=== PATIENT | male | born 1955 | race Caucasian/White ===

== ENCOUNTER 2017-03-06 18:59 | Emergency (ER) | payer OTHER ==
[2017-03-06] MEDS ORDERED: TRAMADOL HCL50 M1 PO (19:57)
--- NOTE | 2017-03-06 19:57 | ED NECK/BACK PAIN COMPLAINT ---
History of Present Illness General Chief Complaint: Male Genitourinary Problems Stated Complaint: ?KIDNEY STONES Source: patient Exam Limitations: no limitations Allergies Coded Allergies: NO KNOWN ALLERGIES (09/02/11) Triage Note: PER PT X 2 DAYS FELT LIKE KINK IN BACK BUT PAIN GETTING WORSE, STARTS L SIDE BACK INTO FRONT. NO URINE CO Triage Nurses Notes Reviewed? yes HPI: This patient is a 61-year-old male who presented to the emergency department today for evaluation of the left lower back pain. The patient reported the pain has been worsening 2 days. The pain except a 9 out of 10, is sharp and throbbing. It is nonradiating. He reported that it is worse when the area is touched or with certain movements. The patient reported that he did play golf a couple days ago and that he may have strained his back. His primary care physician called him in Flexeril today to take. The patient denied any abdominal pain, nausea, vomiting, fevers, chills, chest pain, difficulty breathing, urinary burning, urgency, frequency, or blood in the urine. (CLAYTON VALENCIA PA-C) Vital Signs & Intake/Output Vital Signs & Intake/Output Vital Signs Date Time Temp Pulse Resp B/P Pulse O2 O2 Flow FiO2 Ox Delivery Rate 03/06 2034 98.0 68 18 155/88 98 Room Air Room Air 03/06 191 97.8 67 22 171/91 97 Room Air ED Intake and Output 03/07 0000 03/06 1200 Intake Total Output Total Balance Patient 250 lb Weight Reconcile Medications Tramadol HCl 50 MG TABLET 1 TAB PO BIDP PRN pain (FRANCESCA DEL VALLE,MIKAYLA Potts) Past History Travel History Traveled to [place] past 21 day No Medical History Any Pertinent Medical History? see below for history Neurological: NONE EENT: NONE Cardiovascular: CHOL Respiratory: NONE Gastrointestinal: NONE Hepatic: NONE Renal: NONE Musculoskeletal: NONE Psychiatric: NONE Endocrine: NONE Surgical History Surgical History: non-contributory Psychosocial History Who do you live with Family Services at Home None What is your primary language Slovak Tobacco Use: Current Daily Use Daily Tobacco Use Amount/Type: => 5 Cigarettes daily Family History Hx Contributory? No (CLAYTON VALENCIA PA-C) Review of Systems Review of Systems Constitutional: Reports: no symptoms. Eyes: Reports: no symptoms. Ears, Nose, Throat, Mouth: Reports: no symptoms. Respiratory: Reports: no symptoms. Cardiovascular: Reports: no symptoms. Gastrointestinal/Abdominal: Reports: no symptoms. Musculoskeletal: Reports: see HPI. Skin: Reports: no symptoms. Neurological/Psychological: Reports: no symptoms. All Other Systems: Reviewed and Negative (CLAYTON VALENCIA PA-C) Physical Exam Physical Exam Neck: normal inspection, supple, full range of motion, normal alignment, no midline tenderness Comments: Well-developed well-nourished person in no acute distress HEENT: Normal EENT exam, head normocephalic/atraumatic, moist mucous membranes Pupils equally round and reactive to light. Back: Antalgic gait. No midline tenderness. Lumbar paraspinal musculature tenderness with muscular spasm noted Respiratory: Chest nontender. No respiratory distress. Speaking in full sentences Abdomen: Soft, nontender and nondistended Extremity: Normal and equal pulses. Neuro: Alert oriented x3, cranial nerves II through XII grossly intact. Skin: No appreciable rash on exposed skin, skin is warm and dry. Psych: Mood and affect is normal (CLAYTON VALENCIA PA-C) Progress Differential Diagnosis: cauda equina syn, herniated disc, myofascial strain, pyelo/UTI, sciatica, spinal cord inj, T/L spine injury, ureterolithiasis (CLAYTON VALENCIA PA-C) Plan of Care: Orders Procedure Date/time Status URINALYSIS 03/06 1917 Complete Laboratory Tests 03/06/171921: Urine Color YEL, Urine Clarity CLEAR, Urine pH 6.0, Ur Specific Wolcott 1.020, Urine Protein NEG, Urine Ketones NEG, Urine Nitrite NEG, Urine Bilirubin NEG, Urine Urobilinogen 0.2, Ur Leukocyte Esterase TRACE H, Ur Microscopic SEDIMENT EXAMINED, Urine RBC RARE, Urine WBC RARE, Ur Epithelial Cells RARE, Urine Hemoglobin NEG, Urine Glucose NEG Departure Departure Disposition: HOME OR SELF CARE Condition: Stable Clinical Impression Primary Impression: Muscle strain Referrals: JF DEL VALLE,MENA Richter (PCP/Family) Additional Instructions: Please take previously prescribed Flexeril as directed for muscular spasms. Take medication for pain as prescribed. Follow-up with your primary care physician. Return for any worsening symptoms or concerns. Please avoid any heavy lifting or strenuous activity over the next several days. Apply ice or heat the affected area as needed. Departure Forms: Customer Survey General Discharge Information Prescriptions: Current Visit Scripts Tramadol HCl 1 TAB PO BIDP PRN pain #10 TAB (ERIK KASPER,CLAYTON) PA/EXTRACTOR LOADER AND UNLOADER Co-Sign Statement Statement: ED Attending supervision documentation- [] I saw and evaluated the patient. I have also reviewed all the pertinent lab results and diagnostic results. I agree with the findings and the plan of care as documented in the PA's/EXTRACTOR LOADER AND UNLOADER's documentation. [x] I have reviewed the ED Record and agree with the PA's/EXTRACTOR LOADER AND UNLOADER's documentation. [] Additions or exceptions (if any) to the PAs/EXTRACTOR LOADER AND UNLOADER's note and plan are summarized below: [] (FRANCESCA DEL VALLE,MIKAYLA Potts)
[2017-03-06 20:34] VITALS: BP 155/88
== END 2017-03-06 20:35 ==
LOC: ERH 18:59
DX: S39.012A Strain of muscle, fascia and tendon of lower back, initial encounter (principal); X58.XXXA Exposure to other specified factors, initial encounter
CPT/HCPCS: 81001; 96372; J1885

== ENCOUNTER 2018-02-14 07:00 | Inpatient (IN) | payer OTHER ==
[~2018-02-14] VITALS: Ht 190.5 cm; Wt 106.3 kg
[~2018-02-14 07:00] MED LIST: ASPIRIN EC81 M1 PO; IRON325 M3 PO; PERCOCET 5-3251 EACH PO; TRAMADOL HCL50 M1 PO
--- NOTE | 2018-02-24 09:24 | Surgical Discharge Summary ---
Visit Information Visit Dates Admission Date: 02/24/18 Discharge Date: 02/26/18 History of Present Illness Chief Complaint: left hip pain related to osteoarthritis Surgical History Pertinent Surgical History: hip replacement Psychosocial History Who Do You Live With? Family Services at Home: None What is Your Primary Language? Chinese Review of Systems: See H&P Hospital Course Course Attending Physician: Ramiro DEL VALLE,Abe Potts Primary Care Physician: Dave Carroll MD Hospital Course: Patient was admitted to the hospital for an elective left total hip arthroplasty. Procedure was tolerated well and patient was transferred to a general surgical floor. Diet was advanced and tolerated. Physical therapy performed evaluation and treatment. At time of hospital discharge, vital signs were stable, neurovascular status was intact, and pain was controlled with the use of oral pain medications. Complications: None Allergies: Coded Allergies: No Known Allergies (02/12/18) Significant Procedures: 02/24/2018 left total hip arthroplasty, Dr. Rubio Disposition Summary Disposition Principal Diagnosis: Primary osteoarthritis left hip Additional Diagnosis: Same, status post left total hip arthroplasty Discharge Disposition: home health services Discharge Instructions General Discharge Information Code Status: Full Code Patient's Diet: Resume regular healthy diet Patient's Activity: Weight-bear as tolerated, use assistive devices as needed Follow-Up Instructions/Appts: f/u in 2 weeks from date of surgery for staple removal, 6 weeks to see Please call office to schedule/confirm this appointment. Medications at Discharge Discharge Medications: Stop taking the following medications: Oxycodone HCl/Acetaminophen (Percocet 5-325 MG Tablet) 5 MG-325 MG TABLET ORAL 4 TIMES A DAY as needed for PAIN Aspirin (Ecotrin*) 81 MG TABLET.DR ST[place]ON DAILY Continue taking these medications: Ferrous Sulfate (IRON) 325 MG (65 MG IRON) TABLET 1 Tablet ORAL DAILY Comments: NOT GIVEN IN HOSTPITAL Start taking the following new medications: Apixaban (Eliquis) 2.5 MG TABLET 1 Tablet ORAL TWICE DAILY Qty = 84 No Refills Comments: Last Taken: 02/26/18 Time: 9:00 AM Oxycodone HCl/Acetaminophen (Percocet 5-325 MG Tablet) 5 MG-325 MG TABLET 1-2 Tablet ORAL EVERY 4-6 HOURS as needed for PAIN Qty = 36 No Refills Comments: Last Taken: 02/26/18 Time: 9:00 AM Copies To: Glen DEL VALLE,Dave Richter
--- NOTE | 2018-02-24 09:26 | Patient Discharge Instructions ---
Discharge Instructions General Discharge Information You were seen/treated for: Primary osteoarthritis left hip You had these procedures: Left total hip arthroplasty Watch for these problems: Increasing pain despite the use of pain medication Increasing redness, warmth or swelling Drainage of any type from incision Inability to bear weight on operative leg Persistent nausea and vomiting Fever greater than 101.5 degrees Other wound care: Please keep wound clean and dry. No ointments or lotions of any type on or near incision. Your dressing will be changed by your nurse on the second day after your surgery. Daily dry dressing changes are recommended each day thereafter. You may shower 48hr after surgery. Do not soak your wound- no tub baths or swimming. Special Instructions: Eliquis (apixaban): You are taking this medication to help prevent blood clot formation during the postoperative period. Take as directed. Diet Continue normal diet: Yes Recommended Diet: Regular Activity Activity Limited to: Weight bear as tolerated Additional ACTIVITY Info: Use assistive devices as needed Acute Coronary Syndrome Inclusion Criteria At DC or during hospital stay patient has or had the following: ACS DIAGNOSIS No Discharge Core Measures Meds if any: Prescribed or Continued at Discharge Meds if any: NOT Prescribed or Continued at Discharge Congestive Heart Failure Inclusion Criteria At DC or during hospital stay patient has or had the following: CHF DIAGNOSIS No Discharge Core Measures Meds if any: Prescribed or Continued at Discharge Meds if any: NOT Prescribed or Continued at Discharge Cerebrovascular accident Inclusion Criteria At DC or during hospital stay patient has or had the following: CVA/TIA Diagnosis No Discharge Core Measures Meds if any: Prescribed or Continued at Discharge Meds if any: NOT Prescribed or Continued at Discharge Venous thromboembolism Inclusion Criteria VTE Diagnosis No VTE Type NONE VTE Confirmed by (Test) NONE Discharge Core Measures - Per Current guidelines, there needs to be overlap - treatment for the first 5 days of Warfarin therapy. - If discharged on Warfarin prior to 5 days of - overlap therapy, the patient will need to be - assessed for post discharge needs including - *Post discharge parental anticoagulation - *Warfarin and/or parental anticoagulation education - *Follow up date to check INR post discharge At least 5 days overlap therapy as Inpatient No Meds if any: Prescribed or Continued at Discharge Note: Overlap Therapy is Warfarin and Anticoagulant Meds if any: NOT Prescribed or Continued at Discharge
--- NOTE | 2018-02-24 09:28 | Admission Core Measures ---
Acute Coronary Syndrome (CM) ACS Core Measures Acute Coronary Syndrome Diagnosis No Congestive Heart Failure (NEW) CHF Core Measures Congestive Heart Failure Diagnosis No Cerebrovascular Accident (NEW) CVA Core Measures CVA/TIA Diagnosis No Venous Thromboembolism VTE Core Padma (View Protocol) VTE Risk Factors Surgery No Mechanical VTE Prophylaxis d/t N/A MechProphylax Ordered No VTE Pharm Prophylaxis d/t NA PharmProphylax ordered Problem List As ranked by this Provider includes Assessment & Plan 1. Primary osteoarthritis of left hip HOME MEDS Home Med List Aspirin (Ecotrin*) 81 MG TABLET.DR 1 TAB PO DAILY HEART HEALTH (Reported) Ferrous Sulfate (IRON) 325 MG (65 MG IRON) TABLET 1 TAB PO DAILY SUPPLEMENT ( Reported) Oxycodone HCl/Acetaminophen (Percocet 5-325 MG Tablet) 5 MG-325 MG TABLET 1-2 TAB PO 4 TIMES/DAY PRN PAIN (Reported)
--- NOTE | 2018-02-24 10:20 | Operative Report ---
Operative/Inv Procedure Report Surgery Date: 02/24/18 Name of Procedure: Left total hip arthroplasty Pre-Operative Diagnosis: Primary osteoarthritis left hip Post-Operative Diagnosis: Same Estimated Blood Loss: 300 Surgeon/Liquid Hydrogen Plant Operator: Ramiro DEL VALLE,Abe CONTRERAS Anesthesia: block (SPINAL) IV Fluids: See anesthesia record Implants: Adam Accolade 2 total hip femoral stem 127 neck angle size 6 stem, size 56 acetabular shell 36 mm head with a +2.5 neck length Drains: None Specimens: Left femoral head Complications: None Condition: Stable Operative Indication: Patient's a 62-year-old male with severe degenerative changes of the left hip. He failed conservative treatment including exercise and weight loss. He is indicated for left total hip arthroplasty. Skilled set hands was necessary provided by physician high school assistant football coach Demetrius Daugherty weighted with retraction component assembly limb and limb positioning throughout the case. Operative/Procedure Note Note: Once informed consent was obtained and the correct limb was identified the patient was brought to operative room placed on table in the supine position. After administration of spinal anesthesia patient placed in a right lateral decubitus position on the pegboard with an x-ray roll in place and all bony prominences well-padded. A Ríos catheter was placed. The left lower extremity is prepped and draped usual sterile fashion. To begin the procedure standard incision for superior approach to the left hip was made. Sharp dissection carried down through the skin and subcutaneous tissue and fat. The gluteus river fascia was nicked and incised with a #10 blade. The fibers of the gluteus river were bluntly dissected. Retractors were placed deep to the gluteus medius and around the femoral neck. This allowed excellent visualization of the piriformis which was released from its insertion point and tagged for later repair. A superior capsulotomy was performed and the capsule was tagged for repair. The hip was dislocated. The labrum was removed and osteophytes removed from the acetabular cup. Femoral neck cut was made 1 fingerbreadth above the lesser trochanter and the femoral head was passed off as specimen. Inferior and anterior acetabular retractors were placed. Pulse lavage removed from the acetabulum. Osteophytes were removed with a curved osteotome. Reaming was started with a size 47 reamer to medialize to identify the medial wall of the cup. We then sequentially reamed up to a size 55 reamer. A size 56 cup was trialed and found to be an excellent fit. A size 56 acetabular shell was opened and placed into the acetabulum using an excellent press-fit technique. Cup was completely stable. Care was taken to monitor version and abduction angle. The liner was opened and locked into place. At this point Ray-Khushboo was placed in the liner to protect it and the femur was internally rotated. Box osteotome was used to open up the lateral neck and remove any lateral neck and open up the canal. The starting reamer was used. We then broached sequentially starting with a 0 broach and broached up to a size 6 broach. 6 broach had excellent fit with no rotational instability. A trial reduction was done with a 36 mm head and a 0 neck length. The leg was slightly short so into a +2.5 neck. The hip was stable in 90 of flexion with 30 of abduction and 30 of internal rotation. Hip was re-dislocated and the components removed. A size 627 neck angle Accolade 2 femoral component was opened and placed down the canal using press-fit technique. A trial reduction was again done with a +2.5 neck length and found to be stable. The 36 mm head + 2.5 neck length was opened and placed onto the component. Hip was redislocated and again taken through range of motion. At this point the wound was irrigated with pulse lavage. These piriformis and capsule repaired back to the greater trochanter through drill hole. The gluteus river fascia was closed with a running looped #1 Maxon suture. Subcutaneous tissues closed #1 Vicryl and 2-0 Vicryl interrupted sutures and the skin was closed with noreen. A sterile dressing applied and the patient was taken recovery room in stable condition.
--- NOTE | 2018-02-24 10:52 | RADIOLOGY REPORT ---
EXAMINATION: XR HIP, LEFT CLINICAL INFORMATION: Arthroplasty COMPARISON: None TECHNIQUE: Single AP view of the left hip. FINDINGS: There is an arthroplasty replacing the left hip. There is anatomic alignment on this one view with no complications apparent. IMPRESSION: Expected postoperative changes status post arthroplasty
--- NOTE | 2018-02-24 11:06 | Cons- Medical ---
TriciaAshleyashley 02/24/18 1106: General Information and HPI Consulting Request Date of Consult: 02/24/18 Requested By: Ramiro DEL VALLE,Abe Potts Reason for Consult: Co-management Source of Information: patient, old records Exam Limitations: no limitations History of Present Illness: is a 62 yo man with PMHx. of left hip OA, Hx. of right ankle arthrodesis at 2010. Presented ot for elective Left total hip arthroplasty, had the procedure done today. Medical team consulted for co-management. I saw the patient at PACU, he was comfortable with no acute distress, initially his blood pressure was down to 80/50 mmHg which is most likely secondary to spinal anesthesia, which improved after a bolus of normal saline to 107/60 mmgh. Patient was able to answer questions appropriately. He reports that he is healthy with no chronic disease, he is not on any medication at home except for Percocet which was prescribed for left hip pain, he noticed rash in the upper chest and neck region after he started on Percocet. The only complaint during the encounter is that he has pain on the left hip and also he noted right arm numbness, with no motor or sensory deficits . He denies any chest pain, shortness of breath, palpitation, dizziness, fever, chills, and there is no change in his urinary or bowel habits. He was noted to have cloudy urine through the Ríos catheter but he denies any burning, frequency, dysuria. He has a family history of heart attack in his father at age 85-year-old, and his mother has quadraple bypass surgery in her 60s. Patient had a nuclear stress test done [address] Reddy office which was normal. Allergies/Medications Allergies: Coded Allergies: No Known Allergies (02/12/18) Home Med List: Aspirin (Ecotrin*) 81 MG TABLET. 1 TAB PO DAILY HEART HEALTH (Reported) Ferrous Sulfate (IRON) 325 MG (65 MG IRON) TABLET 1 TAB PO DAILY SUPPLEMENT ( Reported) Oxycodone HCl/Acetaminophen (Percocet 5-325 MG Tablet) 5 MG-325 MG TABLET 1-2 TAB PO 4 TIMES/DAY PRN PAIN (Reported) Current Medications: Current Medications Sig/Jens Start time Last Medication Dose Route Stop Time Status Admin Acetaminophen 0 .STK-MED ONE 02/24 0656 DC PO Acetaminophen 650 MG ONCE 02/24 0000 DC PO 02/24 2359 Apixaban 2.5 MG BID 02/25 1000 AC PO Cefazolin Sodium 2,000 MG ONCE 02/24 0000 DC IV 02/24 2359 Celecoxib 400 MG DAILY 02/25 1000 AC PO Celecoxib 400 MG ONCE 02/24 0000 DC PO 02/24 2359 Dexamethasone 0 .STK-MED ONE 02/24 0656 DC .ROUTE Dexamethasone 10 MG ONCE 02/24 0000 DC IV 02/24 2359 Dextrose/Lactated 1,000 ML Q13H 02/24 1215 AC Ringer's IV Docusate Sodium 100 MG DAILY 02/25 1000 AC PO Gabapentin 0 .STK-MED ONE 02/24 0657 DC PO Gabapentin 300 MG ONCE 02/24 0000 DC PO 02/24 2359 Morphine Sulfate 2 MG Q3P PRN 02/24 1215 AC IV Morphine Sulfate 4 MG Q3P PRN 02/24 1215 AC IV Ondansetron HCl 4 MG Q6P PRN 02/24 1215 AC IV Oxycodone HCl 0 .STK-MED ONE 02/24 0656 DC PO Oxycodone HCl 10 MG ONCE 02/24 0000 DC PO 02/24 2359 Oxycodone/ 1 TAB Q4P PRN 02/24 1215 AC Acetaminophen PO Oxycodone/ 2 TAB Q4P PRN 02/24 1215 AC Acetaminophen PO Polyethylene Glycol 17 GM DAILY NEEDED PRN 02/24 1215 AC PO Scopolamine HBr 0 .STK-MED ONE 02/24 0656 DC TOP Scopolamine HBr 1 PAT ONCE 02/24 0000 DC TOP 02/24 2359 Senna/Docusate Sodium 2 TAB AT BEDTIME 02/24 2200 AC PO Vancomycin HCl 1,500 MG ONCE ONE 02/24 1900 AC Sodium Chloride 250 ML IV 02/24 2029 Vancomycin HCl 1,500 MG ONCE ONE 02/24 0630 DC Sodium Chloride 250 ML IV 02/24 0759 Review of Systems Review of Systems Constitutional: Reports: no symptoms. EENTM: Reports: no symptoms. Cardiovascular: Reports: no symptoms. Respiratory: Reports: no symptoms. GI: Reports: no symptoms. Genitourinary: Reports: no symptoms. Musculoskeletal: Reports: joint pain (left hip). Skin: Reports: rash (on the upper chest and neck). Neurological/Psychological: Reports: numbness (on the Rt. arm). Hematologic/Endocrine: Reports: no symptoms. Immunologic/Allergic: Reports: no symptoms. All Other Systems: Reviewed and Negative Past History Travel History Traveled to [place] past 21 day No Medical History Blood Transfusion Hx: No Neurological: NONE EENT: NONE Cardiovascular: NONE Respiratory: NONE Gastrointestinal: NONE Hepatic: NONE Renal: NONE Musculoskeletal: spinal fusion of C3, C4 Psychiatric: NONE Endocrine: NONE Blood Disorders: NONE Surgical History Surgical History: hip replacement, right ankle arthrodesis Psychosocial History Services at Home: None Smoking Status: Former Smoker ETOH Use: he drinks 3-4 wine on Thursday only Illicit Drug Use: marijuana Exam & Diagnostic Data Last 24 Hrs of Vital Signs/I&O Vital Signs Date Time Temp Pulse Resp B/P B/P Pulse O2 O2 Flow FiO2 Mean Ox Delivery Rate 02/24 1238 96.5 56 20 116/62 02/24 1238 96.5 56 20 116/62 96 Room Air Room Air Intake & Output 02/24 1600 02/24 0800 02/24 0000 Intake Total Output Total Balance Patient 234 lb Weight Weight Bed scale Measurement Method Physical Exam General Appearance: well developed/nourished, no apparent distress, alert, awake Head: atraumatic, normal appearance Eyes: Left: normal appearance, PERRL, EOMI. Neck: normal inspection, supple, full range of motion, erythematous rash Respiratory: normal breath sounds, chest non-tender, no respiratory distress Cardiovascular: regular rate/rhythm, normal peripheral pulses Peripheral Pulses: 2+ dorsalis pedis (R), 2+ dorsalis pedis (L) Gastrointestinal: normal bowel sounds, soft, non-tender, no organomegaly Extremities: normal inspection Neurologic/Psych: awake, alert, oriented x 3, normal mood/affect, flavor tank tender II-XII nml as tested, no motor/sensory deficits in the upper extremities Lower extremity is numb 2/2 to spinal anesthesia Cranial Nerves: normal hearing, normal speech, PERRL Last 24 Hrs of Labs/Ruslan: No labs Diagnostic Data Other Results Hip x-ray: Expected postoperative changes status post arthroplasty Assessment/Plan Assessment/Plan is a 62 yo man with PMHx. of left hip OA, Hx. of right ankle arthrodesis at 2010. Presented ot for elective Left total hip arthroplasty, had the procedure done today. Medical team consulted for co-management. Assessment: #Status post Left total hip arthroplasty #? Allergic reaction to Percocet Plan: * Continue monitoring of his blood pressure and bolus if needed * Pain management for left hip, he had allergic reaction to Percocet consider another agent * Follow-up urinalysis and culture * DVT prophylaxis based on orthopedist recommendation Problem List: 1. Primary osteoarthritis of left hip Copies To: Edna Doran MD Consult Acknowledgment - Thank you for your consult request. Edna Doran MD 02/24/18 1307: Assessment/Plan Consult Acknowledgment - Thank you for your consult request. Attending MD Review Statement Attending Statement Attending MD Statement: examined this patient, discuss w/resident/PA/RFID ENGINEER, agreed w/resident/PA/RFID ENGINEER, reviewed EMR data (avail), discussed with nursing, amended to note Attending Assessment/Plan: 62-year-old male with past medical history significant for osteoarthritis, degenerative disc disease who is admitted postoperatively to orthopedic service after he had left total hip arthroplasty for osteoarthritis. Medical consult is obtained for comanagement. Patient was seen in the recovery room. Patient did complain of feeling some right hand numbness. He was still having some difficulty moving his toes. Patient has received spinal anesthesia. He did drop his blood pressure initially but then improved after fluid bolus. Patient denies any chest pain, shortness of breath. He has a rash on his chest which he attributes to taking Percocet. RN told us that patient's urine was looking cloudy. Patient did have some orangeish urine output this morning but denies any pain or burning. Vital Signs Date Time Temp Pulse Resp B/P B/P Pulse O2 O2 Flow FiO2 Mean Ox Delivery Rate 02/24 1238 96.5 56 20 116/62 02/24 1238 96.5 56 20 116/62 96 Room Air Room Air On exam; Aox3, nad. Cv; s1,s2, rrr resp; clear abd; soft, nt, bs+ ext; no edema s/p Left SHU. no labs. Assessment and recommendations: 62-year-old male with past medical history significant for osteoarthritis, degenerative disc disease who is status post left hip total arthroplasty postoperative day #0 today. Medical consult is obtained for comanagement. We'll send urinalysis and urine culture to make sure there is no infection. Patient will need postoperative incentive spirometry and physical therapy. Patient did mention that he developed a rash with Percocet therefore would recommend using alternative analgesics. H&H will be monitored. DVT prophylaxis postoperatively: Will refer to orthopedic. Patient does not take any chronic home meds. Thank you for allowing us to participate in the care of this patient, will follow along with you.
[2018-02-24 12:38] VITALS: BP 116/62
--- NOTE | 2018-02-24 13:53 | PN- Orthopedic ---
Subjective Subjective: pt sleeping in bed, says he just has pain at incision site. no nausea, has no eaten yet. Hansen still in place. has not ambulated yet. says spinal is wearing off. Denies CP/SOB/GANDHI or fevers Objective Vital Signs and I&Os Vital Signs Date Time Temp Pulse Resp B/P B/P Pulse O2 O2 Flow FiO2 Mean Ox Delivery Rate 02/24 1238 96.5 56 20 116/62 02/24 1238 96.5 56 20 116/62 96 Room Air Room Air Intake & Output 02/24 1600 02/24 0800 02/24 0000 02/23 1600 02/23 0800 02/23 0000 Intake Total Output Total Balance Patient 234 lb Weight Weight Bed scale Measurement Method Physical Exam: gen- NAD, very sleepy resp- clear cardiac- RRR ext- left hip soft with clean dry dressing. distal sensory and motor function intact. 2+ PT pulse. no calf tenderness Current Medications: Current Medications Sig/Jens Start time Last Medication Dose Route Stop Time Status Admin Acetaminophen 0 .STK-MED ONE 02/24 0656 DC PO Acetaminophen 650 MG ONCE 02/24 0000 DC PO 02/24 2359 Apixaban 2.5 MG BID 02/25 1000 AC PO Cefazolin Sodium 2,000 MG ONCE 02/24 0000 DC IV 02/24 2359 Celecoxib 400 MG DAILY 02/25 1000 AC PO Celecoxib 400 MG ONCE 02/24 0000 DC PO 02/24 2359 Dexamethasone 0 .STK-MED ONE 02/24 0656 DC .ROUTE Dexamethasone 10 MG ONCE 02/24 0000 DC IV 02/24 2359 Dextrose/Lactated 1,000 ML Q13H 02/24 1215 AC 02/24 Ringer's IV 1228 Docusate Sodium 100 MG DAILY 02/25 1000 AC PO Gabapentin 0 .STK-MED ONE 02/24 0657 DC PO Gabapentin 300 MG ONCE 02/24 0000 DC PO 02/24 2359 Morphine Sulfate 2 MG Q3P PRN 02/24 1215 AC IV Morphine Sulfate 4 MG Q3P PRN 02/24 1215 AC IV Ondansetron HCl 4 MG Q6P PRN 02/24 1215 AC IV Oxycodone HCl 0 .STK-MED ONE 02/24 0656 DC PO Oxycodone HCl 10 MG ONCE 02/24 0000 DC PO 02/24 2359 Oxycodone/ 1 TAB Q4P PRN 02/24 1215 AC Acetaminophen PO Oxycodone/ 2 TAB Q4P PRN 02/24 1215 AC Acetaminophen PO Polyethylene Glycol 17 GM DAILY NEEDED PRN 02/24 1215 AC PO Scopolamine HBr 0 .STK-MED ONE 02/24 0656 DC TOP Scopolamine HBr 1 PAT ONCE 02/24 0000 DC TOP 02/24 2359 Senna/Docusate Sodium 2 TAB AT BEDTIME 02/24 2200 AC PO Vancomycin HCl 1,500 MG ONCE ONE 02/24 1900 AC Sodium Chloride 250 ML IV 02/24 2029 Vancomycin HCl 1,500 MG ONCE ONE 02/24 0630 DC Sodium Chloride 250 ML IV 02/24 0759 Assessment/Plan Assessment/Plan 62yo M SP Left SHU POD0. stable. PT- WBAT, posterior hip precautions dvt ppx-elequis, alps and early ambulation pain management hansen to come out tomorrow reg diet reg home meds follow-up AM labs Core Measures Venous Thromboembolism VTE Risk Factors Surgery No Mechanical VTE Prophylaxis d/t N/A MechProphylax Ordered No VTE Pharm Prophylaxis d/t NA PharmProphylax ordered
[2018-02-24 23:40] VITALS: BP 121/75
[2018-02-25 06:15] VITALS: BP 100/54
--- NOTE | 2018-02-25 07:58 | PN- Medicine Consult ---
See Addendum Assessment/PlanMedical Consult Assessment/Plan Assessment: is a 62 yo man with PMHx. of left hip OA, Hx. of right ankle arthrodesis at 2010. Presented ot for elective Left total hip arthroplasty, had the procedure done today. Medical team consulted for co-management. Assessment: #Status post Left total hip arthroplasty #Acute blood loss anemia #Allergic reaction to Percocet Plan: * Please order Spirometry * H&H is dropping to 10.9/31.4 today, it was 14.6/42.7 which is related to procedure, however he is hemodynamically stable * Please check stool Guiac given that he is started on Eliquis and document the result * Continue to monitor his blood pressure and bolus if needed (It is in the lower side most likely 2/2 to opiod) * There is multiple order of Percocet and Morphine, avoid to administer these 2 medication close to each other as that is going to affect BP. His BP is noted to be on the lower side. * Pain management for left hip, he had allergic reaction to Percocet consider another agent * Bowel regimen to avoid constipation * Patient want to know his iron level, iron indices added to his am lab * Urine culture was sent still pending, however no UA sent. Please send UA * DVT prophylaxis with Eliquis per orthopedic surgery Problem List: 1. Primary osteoarthritis of left hip Subjective Subjective: Patient seen and examined, no events over night, vitals stable, BP on the lower side 100/54mmgh He still complaining of pain on the left hip with improvement from yesterday. No bowel movement, he passes gas. No SOB or chest pain Review of Systems Constitutional: Reports: no symptoms. EENTM: Reports: no symptoms. Cardiovascular: Reports: no symptoms. Respiratory: Reports: no symptoms. Gastrointestinal: Reports: no symptoms. Genitourinary: Reports: no symptoms. Musculoskeletal: Reports: no symptoms. Skin: Reports: no symptoms. Neurological/Psychological: Reports: no symptoms. Hematologic/Endocrine: Reports: no symptoms. Immunologic/Allergic: Reports: no symptoms. Objective Last 24 Hrs of Vital Signs/I&O Vital Signs Date Time Temp Pulse Resp B/P B/P Pulse O2 O2 Flow FiO2 Mean Ox Delivery Rate 02/25 0615 97.6 62 20 100/54 95 02/24 2340 98.2 63 20 121/75 97 Room Air 02/24 1238 96.5 56 20 116/62 02/24 1238 96.5 56 20 62 96 Room Air Room Air Intake & Output 02/25 0800 02/25 0000 02/24 1600 Intake Total 625 Output Total 1900 850 Balance -1900 -850 625 Intake, IV 225 Intake, Oral 400 Output, Urine 1900 850 Patient 234 lb Weight Weight Bed scale Measurement Method Physical Exam General Appearance: well developed/nourished, no apparent distress, alert, awake , comfortable Head: atraumatic, normal appearance Ears, Nose, Throat: normal pharynx Neck: normal inspection, supple Cardiovascular: regular rate/rhythm, normal peripheral pulses Respiratory: normal breath sounds, chest non-tender, no respiratory distress Abdomen: normal bowel sounds, soft, non-tender Extremities: no edema Neurologic/Psychiatric: awake, alert, oriented x 3 Current Medications: Current Medications Sig/Jens Start time Last Medication Dose Route Stop Time Status Admin Acetaminophen 650 MG ONCE 02/24 0000 DC PO 02/24 2359 Apixaban 2.5 MG BID 02/25 1000 AC PO Cefazolin Sodium 2,000 MG ONCE 02/24 0000 DC IV 02/24 2359 Celecoxib 400 MG DAILY 02/25 1000 AC PO Celecoxib 400 MG ONCE 02/24 0000 DC PO 02/24 2359 Dexamethasone 10 MG ONCE 02/24 0000 DC IV 02/24 2359 Dextrose/Lactated 1,000 ML Q13H 02/24 1215 AC 02/25 Ringer's IV 0111 Docusate Sodium 100 MG DAILY 02/25 1000 AC PO Gabapentin 300 MG ONCE 02/24 0000 DC PO 02/24 2359 Morphine Sulfate 2 MG Q3P PRN 02/24 1215 AC IV Morphine Sulfate 4 MG Q3P PRN 02/24 1215 AC 02/25 IV 0435 Ondansetron HCl 4 MG Q6P PRN 02/24 1215 AC IV Oxycodone HCl 10 MG ONCE 02/24 0000 DC PO 02/24 2359 Oxycodone/ 1 TAB Q4P PRN 02/24 1215 AC 02/24 Acetaminophen PO 1628 Oxycodone/ 2 TAB Q4P PRN 02/24 1215 AC 02/24 Acetaminophen PO 2158 Polyethylene Glycol 17 GM DAILY NEEDED PRN 02/24 1215 AC PO Scopolamine HBr 1 PAT ONCE 02/24 0000 DC TOP 02/24 2359 Senna/Docusate Sodium 2 TAB AT BEDTIME 02/24 2200 AC 02/24 PO 2158 Vancomycin HCl 1,500 MG ONCE ONE 02/24 1900 DC 02/24 Sodium Chloride 250 ML IV 02/24 2029 1953 Vancomycin HCl 1,500 MG ONCE ONE 02/24 0630 DC Sodium Chloride 250 ML IV 02/24 0759 Results Last 24 Hrs Lab/Ruslan Results: Laboratory Tests 02/25/18 0652: Sodium Pending, Potassium Pending, Chloride Pending, Carbon Dioxide Pending, Anion Gap Pending, BUN Pending, Creatinine Pending, BUN/Creatinine Ratio Pending , CBC w Diff Pending, WBC Pending, RBC Pending, Hgb Pending, Hct Pending, MCV Pending, MCH Pending, MCHC Pending, RDW Pending, Plt Count Pending, MPV Pending Microbiology 02/24 0800 URINE ROUT: Urine Culture - RECD
[2018-02-25 08:28] LABS: ABSOLUTE BASOPHIL COUNT 0 /CUMM (0.0-0.2); ABSOLUTE EOSINOPHIL COUNT 0 /CUMM (0.0-0.7); ABSOLUTE GRANULOCYTE CT 6.8 /CUMM (1.4-6.5); ABSOLUTE LYMPH COUNT 0.8 /CUMM (1.2-3.4); ABSOLUTE MONOCYTE COUNT 0.6 /CUMM (0.10-0.60); BASOPHIL % 0.1 % (0.0-2.0); EOSINOPHIL % 0.4 % (0-5); GRANULOCYTE % 81.8 % (42.2-75.2); HEMATOCRIT 31.4 % (42-52); MEAN CORPUSCULAR HGB 31.4 PG (27.0-31.0); MEAN CORPUSCULAR HGB CONC 34.6 G/DL (33.0-37.0); MEAN CORPUSCULAR VOLUME 90.8 FL (80.0-94.0); MEAN PLATELET VOLUME 10.6 FL (7.4-10.4); PLATELET COUNT 188 /CUMM (130-400); RBC DISTRIBUTION WIDTH 14.1 % (11.5-14.5); RED BLOOD CELL CT 3.46 /CUMM (4.70-6.10); WHITE BLOOD CELL COUNT 8.4 /CUMM (4.8-10.8)
--- NOTE | 2018-02-25 08:41 | PN- Orthopedic ---
See Addendum Subjective Subjective: Patient doing well. Has been up and ambulating with a walker with PT. Has stairs in his home and has not tried those yet. He can reside on the first level if need be. Feels comfortable with the initial plan to go home with a walker and services. He is tolerating a regular diet and is ready for the hansen to come out. Current analgesia working well. No other issues or complaints. Objective Vital Signs and I&Os Vital Signs Date Time Temp Pulse Resp B/P B/P Pulse O2 O2 Flow FiO2 Mean Ox Delivery Rate 02/25 0615 97.6 62 20 100/54 95 02/24 2340 98.2 63 20 121/75 97 Room Air 02/24 1238 96.5 56 20 11662 02/24 1238 96.5 56 20 96 Room Air Room Air Intake & Output 02/25 1600 02/25 0800 02/25 0000 02/24 1600 02/24 0800 02/24 0000 Intake Total 780 625 Output Total 1900 850 Balance -1120 -850 625 Intake, IV 300 225 Intake, Oral 480 400 Output, Urine 1900 850 Patient 234 lb Weight Weight Bed scale Measurement Method Physical Exam: General: A, A, NAD Extremities: Left hip dressing is clean, dry, and intact without any strikethrough, no surrounding edema, erythema or ecchymosis, appropriately tender to palpation, light touch sensation intact and equal bilaterally, 5/5 dorsiflexion and plantarflexion Current Medications: Current Medications Sig/Jens Start time Last Medication Dose Route Stop Time Status Admin Acetaminophen 650 MG ONCE 02/24 0000 DC PO 02/24 2359 Apixaban 2.5 MG BID 02/25 1000 AC PO Cefazolin Sodium 2,000 MG ONCE 02/24 0000 DC IV 02/24 235 Celecoxib 400 MG DAILY 02/25 1000 AC PO Celecoxib 400 MG ONCE 02/24 0000 DC PO 02/24 235 Dexamethasone 10 MG ONCE 02/24 0000 DC IV 02/24 235 Dextrose/Lactated 1,000 ML Q13H 02/24 1215 DC 02/25 Ringer's IV 0111 Docusate Sodium 100 MG DAILY 02/25 1000 AC PO Gabapentin 300 MG ONCE 02/24 0000 DC PO 02/24 235 Morphine Sulfate 2 MG Q3P PRN 02/24 1215 AC IV Morphine Sulfate 4 MG Q3P PRN 02/24 1215 AC 02/25 IV 0759 Ondansetron HCl 4 MG Q6P PRN 02/24 1215 AC IV Oxycodone HCl 10 MG ONCE 02/24 0000 DC PO 02/24 2359 Oxycodone/ 1 TAB Q4P PRN 02/24 1215 AC 02/24 Acetaminophen PO 1628 Oxycodone/ 2 TAB Q4P PRN 02/24 1215 AC 02/24 Acetaminophen PO 2158 Polyethylene Glycol 17 GM DAILY NEEDED PRN 02/24 1215 AC PO Scopolamine HBr 1 PAT ONCE 02/24 0000 DC TOP 02/24 2359 Senna/Docusate Sodium 2 TAB AT BEDTIME 02/24 2200 AC 02/24 PO 2158 Vancomycin HCl 1,500 MG ONCE ONE 02/24 1900 DC 02/24 Sodium Chloride 250 ML IV 02/24 Results Last 48 Hours of Labs: Laboratory Tests 02/25 0652 Chemistry Sodium Pending Potassium Pending Chloride Pending Carbon Dioxide Pending Anion Gap Pending BUN Pending Creatinine Pending BUN/Creatinine Ratio Pending Hematology CBC w Diff Pending WBC Pending RBC Pending Hgb Pending Hct Pending MCV Pending MCH Pending MCHC Pending RDW Pending Plt Count Pending MPV Pending Recent Imaging Studies: Right Hip X-ray 02/24/18: Arthroplasty replacing the left hip. There is anatomic alignment on this one view with no complications apparent. Assessment/Plan Assessment/Plan This is a 62 yo male with a past medical history significant for iron deficiency anemia, alcohol use and osteoarthritis who is POD#1 s/p Left Total Hip Arthroplasty. Plan for today is as follows: 1. Continue Regular Diet, HL IVF 2. D/C Hansen, DTV in 6-8 hours, if no void bladder scan and call team 3. OOB w/ assist and RW, continue PT, needs to try stairs with PT prior to discharge, if able to do stairs anticipate home with services tomorrow or Thursday 4. Continue current analgesia and bowel regimen 5. Dressing change by surgery tomorrow 6. Continue Eliquis 2.5mg BID for anticoagulation 7. Continue CIWA 8. Appreciate medicine input, discussed changing Percocet with the patient however, he said its the only thing that works for him and would prefer to stay on it. BP stable will continue to monitor. 9. Will follow up labs Problem List: 1. Primary osteoarthritis of left hip 2. Status post left hip replacement Core Measures Venous Thromboembolism VTE Risk Factors Surgery No Mechanical VTE Prophylaxis d/t N/A MechProphylax Ordered No VTE Pharm Prophylaxis d/t NA PharmProphylax ordered
[2018-02-25 10:00] VITALS: BP 100/58
[2018-02-25 16:00] VITALS: BP 104/56
[2018-02-25 22:29] VITALS: BP 102/50
[2018-02-26 06:02] VITALS: BP 100/64
--- NOTE | 2018-02-26 07:41 | PN- Medicine Consult ---
See Addendum Assessment/PlanMedical Consult Assessment/Plan Assessment: is a 62 yo man with PMHx. of left hip OA, Hx. of right ankle arthrodesis at 2010. Presented ot for elective Left total hip arthroplasty, had the procedure done today. Medical team consulted for co-management. Assessment: #Status post Left total hip arthroplasty Plan: * Check his CBC today, to check H&H prior to discharge * Pain management for left hip per surgical team * Bowel regimen to avoid constipation * DVT prophylaxis with Eliquis per orthopedic surgery Thanks for the consult. Medical team will sign off, call for any questions Problem List: 1. Status post left hip replacement Subjective Subjective: Patient seen and examined, eating his breakfast, feels sore on the left hip. His pain is well controlled with Percocet. He passes gas with no bowel movement yet. He is going home today per surgical team with home health service. Vitals stable, no events over night Objective Last 24 Hrs of Vital Signs/I&O Vital Signs Date Time Temp Pulse Resp B/P B/P Pulse O2 O2 Flow FiO2 Mean Ox Delivery Rate 02/26 0602 97.8 66 20 100/64 94 Room Air 02/25 2229 98.6 53 16 102/50 94 Room Air 02/25 1600 98.9 64 18 104/56 96 Room Air Room Air 02/25 1024 Room Air Room Air 02/25 1000 99.3 62 20 100/58 96 Room Air Intake & Output 02/26 1600 02/26 0800 02/26 0000 Intake Total 240 1280 Output Total 1400 850 Balance -1160 430 Intake, Oral 240 1280 Output, Urine 1400 850 Physical Exam General Appearance: well developed/nourished, no apparent distress, alert, awake , comfortable Head: atraumatic, normal appearance Cardiovascular: regular rate/rhythm Respiratory: normal breath sounds Abdomen: normal bowel sounds, soft, non-tender Extremities: no edema Neurologic/Psychiatric: no motor/sensory deficits, awake, alert, oriented x 3 Skin: intact, normal color, warm/dry Current Medications: Current Medications Sig/Jens Start time Last Medication Dose Route Stop Time Status Admin Apixaban 2.5 MG BID 02/25 1000 AC 02/25 PO 2037 Celecoxib 400 MG DAILY 02/25 1000 AC 02/25 PO 0919 Dextrose/Lactated 1,000 ML Q13H 02/24 1215 DC 02/25 Ringer's IV 0111 Docusate Sodium 100 MG DAILY 02/25 1000 AC 02/26 PO 0730 Morphine Sulfate 2 MG Q3P PRN 02/24 1215 AC IV Morphine Sulfate 4 MG Q3P PRN 02/24 1215 AC 02/25 IV 0759 Ondansetron HCl 4 MG Q6P PRN 02/24 1215 AC IV Oxycodone/ 1 TAB Q4P PRN 02/24 1215 AC 02/24 Acetaminophen PO 1628 Oxycodone/ 2 TAB Q4P PRN 02/24 1215 AC 02/26 Acetaminophen PO 0730 Patient Medication 1 ED ONE ONE 02/25 1315 DC Teaching ED 02/25 1316 Polyethylene Glycol 17 GM DAILY NEEDED PRN 02/24 1215 AC 02/26 PO 0730 Senna/Docusate Sodium 2 TAB AT BEDTIME 02/24 2200 AC 02/25 PO 2036 Results Last 24 Hrs Lab/Ruslan Results: No labs
[2018-02-26] MEDS ORDERED: PERCOCET 5-3251 EACH PO (12:32)
[2018-02-26] MEDS ORDERED: ELIQUIS2.5 M1 PO (12:32)
--- NOTE | 2018-02-26 12:37 | PN- Orthopedic ---
Subjective Subjective: 62 Y/O MALE s/p LEFT SHU patient doing well without complaints, feels good and is ready to go home. no fevers or chills, tolarating POs Review of Systems: no fevers or chills no wound drainage tolerating POs Objective Vital Signs and I&Os Vital Signs Date Time Temp Pulse Resp B/P B/P Pulse O2 O2 Flow FiO2 Mean Ox Delivery Rate 02/26 0602 97.8 66 20 100/64 94 Room Air 02/25 2229 98.6 53 16 102/50 94 Room Air 02/25 1600 98.9 64 18 104/56 96 Room Air Room Air Intake & Output 02/26 1600 02/26 0800 02/26 0000 02/25 1600 02/25 0800 02/25 0000 Intake Total 240 1280 800 780 Output Total 250 1400 070 615 4712 850 Balance -250 -1160 430 150 -1120 -850 Intake, IV 300 Intake, Oral 240 1280 800 480 Number 1 Bowel Movements Output, Urine 250 1400 057 193 6328 850 Physical Exam: chest - CTA symmetric heart- RRR without MRG abd -soft without distention left hip - dressings removed and changed, mild edema, wound with scant bloody drainage calves soft bilaterally and distal pulses intact Assessment/Plan Assessment/Plan POD#2 left SHU plan -D/c home with services dvt proph -[facility]vangelistais all questions answered. stable for D/C Core Measures Venous Thromboembolism VTE Risk Factors Surgery No Mechanical VTE Prophylaxis d/t N/A MechProphylax Ordered No VTE Pharm Prophylaxis d/t NA PharmProphylax ordered
== END 2018-02-26 13:49 | disposition home health service (06) | DRG 470 ==
LOC: SDA 02-24 04:08 → ENRESERV 02-24 10:30 → ENTRNSPT 02-24 11:55 → EDTRNSPT 02-24 12:03 → EDTRNSPTSTS 02-24 12:03 → 2NB 02-24 12:07 → CMPTRNSPT 02-24 12:38 → ENPENDDIS 02-26 11:44 → ENTRNSPT 02-26 13:38 → EDTRNSPTSTS 02-26 13:40 → 2NB 02-26 13:49 → CMPTRNSPT 02-26 14:15
PROVIDERS: Physician Assistant Surgical
PROC: 0SRB04A Replacement of Left Hip Joint with Ceramic on Polyethylene Synthetic Substitute, Uncemented, Open Approach (ICD-10-PCS; principal; 2018-02-24)
DX: M16.12 Unilateral primary osteoarthritis, left hip (principal); I95.2 Hypotension due to drugs; D62 Acute posthemorrhagic anemia; F12.90 Cannabis use, unspecified, uncomplicated; T88.59XA Other complications of anesthesia, initial encounter; Z79.82 Long term (current) use of aspirin; Z79.891 Long term (current) use of opiate analgesic; Z98.1 Arthrodesis status; Z87.891 Personal history of nicotine dependence; L27.1 Localized skin eruption due to drugs and medicaments taken internally; T40.2X5A Adverse effect of other opioids, initial encounter; Y92.239 Unspecified place in hospital as the place of occurrence of the external cause
CPT/HCPCS: 2NBP; 36415; 36592; 73501; 82436; 87086; 88304; 97110-GO; 97116-GO; 97161-GP; 97530-GO; J0690; J1100; J2405; J3370; J7040